=== PATIENT | female | born 1955 | race Caucasian/White ===

== ENCOUNTER 2022-12-24 13:13 | Outpatient (CLI) | payer MEDICARE | END 2022-12-24 13:14 | disposition home or self-care (01) | LOC: CSHCP 13:13 | PROVIDERS: ATTEND Radiology Radiation Oncology | DX: C34.82 Malignant neoplasm of overlapping sites of left bronchus and lung (principal) | CPT/HCPCS: 94010; 94726; 94729; 94760 ==